=== PATIENT | male | born 1960 | race Caucasian/White ===

== ENCOUNTER 2018-04-13 09:58 | Emergency (ER) | payer BC ==
[~2018-04-13] VITALS: Ht 185.4 cm; Wt 76.7 kg
[~2018-04-13 09:58] MED LIST: ATEN-41 PO; BUPR75TA20 PO; METH5TAB70 PO; MULT-1117 PO; OMEP20CA10 PO
[2018-04-13 10:00] VITALS: BP_SYST 110
[2018-04-13] MEDS ORDERED: MORPHINE 2 MG/ML INJ. SYRINGE IVP ONE (10:30)
[2018-04-13] MEDS ORDERED: NACL 0.9% 1,000 ML IV ONE (10:30)
[2018-04-13 12:25] VITALS: BP_SYST 117
== END 2018-04-13 12:25 | disposition home or self-care (01) ==
LOC: SED 09:58
DX: S86.811A Strain of other muscle(s) and tendon(s) at lower leg level, right leg, initial encounter (principal); Z79.899 Other long term (current) drug therapy; V00.131A Fall from skateboard, initial encounter; Y93.51 Activity, roller skating (inline) and skateboarding; Y92.89 Other specified places as the place of occurrence of the external cause; Y99.8 Other external cause status
CPT/HCPCS: 73590; 93971; 99284; J7030; J2270

== ENCOUNTER 2018-09-08 10:17 | Emergency (ER) | payer BC ==
[~2018-09-08] VITALS: Ht 185.4 cm; Wt 74.8 kg
[2018-09-08 10:17] VITALS: BP_SYST 143
[2018-09-08] MEDS ORDERED: KETOROLAC TROMETHAMINE 60 MG/2 ML VIAL IM ONE (10:45)
[2018-09-08 13:12] VITALS: BP_SYST 140
== END 2018-09-08 13:12 | disposition home or self-care (01) ==
LOC: SED 10:17
DX: N43.2 Other hydrocele (principal); N50.89 Other specified disorders of the male genital organs; R03.0 Elevated blood-pressure reading, without diagnosis of hypertension; Z90.89 Acquired absence of other organs; Z79.899 Other long term (current) drug therapy
CPT/HCPCS: 76870; 96372; 99284; J1885